=== PATIENT | male | born 1970 | race Caucasian/White ===

== ENCOUNTER 2020-03-26 12:24 | Outpatient (CLI) | payer BC, SELFPAY ==
--- NOTE | ~2020-03-26 | US_ITS ---
US soft tissue chest 03/26/2020 13:05 Indication: Localized swelling Procedure: High-resolution ultrasound of the left chest wall Comparison: No prior studies for comparison. Findings: Near the sternum in the left chest wall there is an oval circumscribed hypoechoic mass with internal cyst parallel striations measuring 3 x 2.4 x 0.8 cm. Minimal peripheral vascularity. There is parallel orientation. Impression: 1: Oval hypoechoic mass of the left chest wall in the area of palpable concern measuring up to 3 cm, most likely benign lipoma. Recommend follow-up ultrasound in 6 months unless subcortical examination changes earlier. Alternatively, percutaneous biopsy may be performed if decided by the patient and he r physician. Reviewed, dictated and finalized at location A. TATION SUPERVISOR Impression: 1: Oval hypoechoic mass of the left chest wall in the area of palpable concern measuring up to 3 cm, most likely benign lipoma. Recommend follow-up ultrasound in 6 months unless subcortical examination changes earlier. Alternatively, per cutaneous biopsy may be performed if decided by the patient and her physician.
== END 2020-03-26 12:25 | disposition home or self-care (01) ==
PROVIDERS: PCP Family Medicine; Visit Provider Family Medicine
DX: R22.2 Localized swelling, mass and lump, trunk (principal)
CPT/HCPCS: 76604

== ENCOUNTER → 2020-05-04 00:46 | Outpatient (CLI) | payer BC, SELFPAY ==
[2020-05-04 18:32] LABS: SARS-CoV-2 RNA PCR Negative
== END ==
PROVIDERS: PCP Family Medicine; Visit Provider Internal Medicine Gastroenterology
DX: Z01.812 Encounter for preprocedural laboratory examination (principal); Z20.822 Contact with and (suspected) exposure to COVID-19
CPT/HCPCS: C9803; U0003; U0005

== ENCOUNTER 2020-05-07 00:38 | Day surgery (SDC) | payer BC, SELFPAY ==
[2020-04-26 13:55] VITALS: BMI 23.7
[2020-05-07 06:21] VITALS: BMI 23.6
[2020-05-07] MEDS: LACTATED RINGERS 1,000 ML 150 ML IV CONT (06:46)
--- NOTE | 2020-05-07 06:53 | WPDANESEPPF ---
Anes - Initial Pre Proc Eval Procedure: Operation Date: 05/07/20 07:30 Proposed Procedures p Screening Colonoscopy - Keith Rodriguez MD Date/Time: 05/07/20 06:53 Surgeon: Keith Rodriguez MD Pre Op Diagnosis: neoplasm screening Patient Data Age: 49 Gender: M Height: 6 ft 4 in Weight: 87.8 kg Allergies Allergy/AdvReac Type Severity Reaction Status Date / Time No Known Allergies Allergy Unknown Verified 05/07/20 06:19 Home Medications Medication Instructions Recorded Confirmed Type atorvastatin 10 mg tablet 10 mg PO DAILY #90 tablet 04/13/20 05/07/20 Rx sodium,potassium,mag sulfates 17.5 See Rx Instructions PO .COMPLEX 04/15/20 04/26/20 Rx gram-3.13 gram-1.6 gram oral soln #354 ml Patient hx anesthesia problems: none Family hx anesthesia problems: none PMFSH Past Medical History Medical History Elbow injury Hyperlipidemia Other bursal cyst, other site Thumb fracture Social History Social History Smoking packs per day: 0.5 Smoking cigarettes per day: 10.0 Smoking status: Former smoker Tobacco type: cigarettes Alcohol intake: current Drinks per week: 14 Substance use: never Substance use type: does not use Living arrangements: with family Spiritual care concerns: No Anes - Eval Final PreProcedure Day of Procedure 05/07/20 06:53 Patient weight: normal Heart: regular rate and rhythm Lungs: clear to auscultation Airway: Mallampati scale class 1 Neurological: alert and oriented Last oral intake: >/= 8 hours ASA classification: II Emergent: no Anesthetic plan: proceed Anesthesia type and monitoring: general GIVS and standard monitoring Informed Consent: The patient's anesthetic plan and its attendant risks and benefits were discussed with the patient/family/POA. Questions were solicited and answers provided to the satisfaction of the patient/family/POA.
--- NOTE | 2020-05-07 07:02 | PM.HPGS ---
History of Present Illness History of Present Illness Consent: Risks, benefits, and alternatives have been discussed and questions answered. Patient agrees to proceed with procedure. Chief complaint: neoplasm screening Narrative: Ki Das is a 49 year old male Referred for colon cancer screen Review of Systems Review of Systems: All systems reviewed & are unremarkable except as noted in HPI and below PMFSH Past Medical History Medical History Elbow injury Hyperlipidemia Other bursal cyst, other site Thumb fracture Social History Social History Smoking packs per day: 0.5 Smoking cigarettes per day: 10.0 Smoking status: Former smoker Tobacco type: cigarettes Alcohol intake: current Drinks per week: 14 Substance use: never Substance use type: does not use Living arrangements: with family Spiritual care concerns: No Meds Home Medications and Allergies Home Medications Medication Instructions Recorded Confirmed Type atorvastatin 10 mg tablet 10 mg PO DAILY #90 tablet 04/13/20 05/07/20 Rx sodium,potassium,mag sulfates 17.5 See Rx Instructions PO .COMPLEX 04/15/20 04/26/20 Rx gram-3.13 gram-1.6 gram oral soln #354 ml Allergies Allergy/AdvReac Type Severity Reaction Status Date / Time No Known Allergies Allergy Unknown Verified 05/07/20 06:19 Exam Resp: Auscultation: clear to auscultation bilaterally Cardio: Rate: regular rate Rhythm: regular rhythm GI: GI Palp: Yes Soft to palpation and No Tenderness to palpation present (GI) Assessment and Plan Assessment and plan (1) Screening for colon cancer: Code(s): Z12.11 - Encounter for screening for malignant neoplasm of colon Status: Acute Assessment and Plan: Colonoscopy with possible biopsy or polypectomy or cautery or injection of substances.
[2020-05-07 07:43] VITALS: BP 107/65; PULSE 59; RESP 11; O2SAT 96
[2020-05-07 07:53] VITALS: BP 108/58; PULSE 61; RESP 17; O2SAT 96
[2020-05-07 08:03] VITALS: BP 127/84; PULSE 59; RESP 18; O2SAT 98
== END 2020-05-07 08:05 | disposition home or self-care (01) ==
PROVIDERS: PCP Family Medicine; Visit Provider Internal Medicine Gastroenterology
PROC: 0DJD8ZZ Inspection of Lower Intestinal Tract, Via Natural or Artificial Opening Endoscopic (ICD-10-PCS; CPT 45378; principal; 2020-05-07 07:30)
DX: Z12.11 Encounter for screening for malignant neoplasm of colon (principal); E78.5 Hyperlipidemia, unspecified; Z87.891 Personal history of nicotine dependence
CPT/HCPCS: 45378; J7120

== ENCOUNTER 2020-06-02 08:28 | Outpatient (CLI) | payer BC, SELFPAY | END 2020-06-02 08:29 | disposition home or self-care (01) | LOC: ANHCOVIDVC 08:29 | PROVIDERS: PCP Family Medicine | DX: Z23 Encounter for immunization (principal) | CPT/HCPCS: 0001A; 91300 ==

== ENCOUNTER 2020-06-23 08:30 | Outpatient (CLI) | payer BC, SELFPAY | END 2020-06-23 08:31 | LOC: ANHCOVIDVC 08:30 | PROVIDERS: PCP Family Medicine | DX: Z23 Encounter for immunization (principal) | CPT/HCPCS: 0002A; 91300 ==

== ENCOUNTER → 2020-07-26 10:52 | Outpatient (CLI) | payer BC, SELFPAY ==
--- NOTE | ~2020-07-26 | US_ITS ---
US soft tissue groin LT 07/26/2020 11:24 Indication: Left groin pain Procedure: High-resolution ultrasound of the left groin Comparison: . No prior studies for comparison. Findings: There is a normal appearing 1.3 cm lymph node in the left groin with retention of normal fa tty hilum. No evidence for inguinal hernia. No suspicious masses. No abnormal fluid collections. Impression: 1: Unremarkable ultrasound of the left groin without evidence for hernia. 2: Normal left inguinal lymph node measuring up to 1.3 cm, likely reactive. Reviewed, dictated and finalized at location B. Impression: 1: Unremarkable ultrasound of the left groin without evidence for hernia. 2: Normal left inguinal lymph node measuring up to 1.3 cm, likely reactive.
== END ==
PROVIDERS: Visit Provider Physician Assistant
DX: R10.32 Left lower quadrant pain (principal)
CPT/HCPCS: 76882

== ENCOUNTER 2020-10-08 11:08 | Outpatient (CLI) | payer BC, SELFPAY ==
--- NOTE | ~2020-10-08 | US_ITS ---
EXAMINATION: US soft tissue chest DATE: 10/08/2020 11:31 INDICATION: Month follow-up of a left chest wall lump TECHNIQUE: Multiple grayscale and Doppler ultrasound images of the region of the anterior left chest wall were obtained. COMPARISON: 03/26/2020 FINDINGS: No interval change in an ovoid subcutaneous mass measuring 2.9 x 2.1 x 0.8 cm the current study and 3 .0 x 2.4 x 0.8 cm on the prior study. The mass is only minimally hyperechoic and with similar echogen icity and linear internal septations as the surrounding subcutaneous fat which would be most consiste nt with a lipoma. IMPRESSION: 1. No significant interval change in a 2.9 x 2.1 x 0.8 cm ovoid subcutaneous mass with appearance mos t consistent with and statistically most likely to represent a lipoma. Reviewed, dictated and finalized at location A. IMPRESSION: 1. No significant interval change in a 2.9 x 2.1 x 0.8 cm ovoid subcutaneous ma ss with appearance most consistent with and statistically most likely to repres ent a lipoma.
== END 2020-10-08 11:09 | disposition home or self-care (01) ==
LOC: ANHIMG 11:11
PROVIDERS: PCP Family Medicine; Visit Provider Family Medicine
DX: M79.89 Other specified soft tissue disorders (principal)
CPT/HCPCS: 76604

== ENCOUNTER → 2021-01-20 11:57 | Outpatient (REF) | payer BC, SELFPAY | LOC: ANHLAB 11:57 | PROVIDERS: PCP Family Medicine; Visit Provider Nurse Practitioner | DX: D49.2 Neoplasm of unspecified behavior of bone, soft tissue, and skin (principal); L57.0 Actinic keratosis | CPT/HCPCS: 88305 ==

== ENCOUNTER 2022-03-08 10:40 | Outpatient (CLI) | payer OTHER, SELFPAY ==
--- NOTE | ~2022-03-08 | MR_ITS ---
MRI of the right shoulder Technique: Axial proton-density fat-sat images, coronal proton density fat-sat and T2 fat-sat images, and sagittal T1-weighted and T2 fat-sat images were acquired. Clinical History: Pain Findings: There is minimal degenerative change at the AC joint. Minimal subacromial spur present. Cor acoclavicular, coracoacromial, and coracohumeral ligaments are intact. Supraspinatus and infraspinatus tendons are intact, without partial or full-thickness tear. There is minimal tendinosis. Subscapularis tendon also intact with mild tendinosis. Tendon of the long head of the biceps is intact. Probable mild degenerative attenuation of the anterior labrum. Minimal inframedial humeral head spur noted. Inferior glenohumeral ligament is intact. No muscle atro phy or edema. No fluid distention of the subacromial/subdeltoid bursa. Impression: Mild rotator cuff tendinosis without partial or full-thickness tear. Mild degenerative attenuation of the anterior labrum. Reviewed, dictated and finalized at [facility]. RENTAL SALES ASSISTANT Impression: Mild rotator cuff tendinosis without partial or full-thickness tear. Mild degenerative attenuation of the anterior labrum.
== END 2022-03-08 10:41 | disposition home or self-care (01) ==
PROVIDERS: PCP Family Medicine; Visit Provider Physician Assistant Surgical
DX: M25.511 Pain in right shoulder (principal); M77.8 Other enthesopathies, not elsewhere classified
CPT/HCPCS: 73221

== ENCOUNTER 2022-04-25 08:02 | Outpatient (CLI) | payer OTHER, SELFPAY ==
--- NOTE | 2022-04-25 08:10 | ECG_ITS ---
Measurements Intervals [place] Rate: 55 P: 62 KS: 163 QRS: 48 QRSD: 118 T: 50 QT: 396 QTc: 381 Interpretive Statements SINUS BRADYCARDIA INCOMPLETE RIGHT BUNDLE BRANCH BLOCK BORDERLINE ECG NO PREVIOUS ECG AVAILABLE FOR COMPARISON Electronically Signed On 04-25-2022 8:18:49 GLOVE PARTS CUTTER by Steve Gordillo D.O.
== END 2022-04-25 08:03 | disposition home or self-care (01) ==
LOC: ANHSURGERY 08:06
PROVIDERS: PCP Family Medicine; Visit Provider Orthopaedic Surgery
DX: E78.5 Hyperlipidemia, unspecified (principal); I45.10 Unspecified right bundle-branch block
CPT/HCPCS: 93005

== ENCOUNTER 2022-05-02 00:43 | Day surgery (SDC) | payer OTHER, SELFPAY ==
[2022-04-21 13:40] VITALS: BMI 24.3
--- NOTE | 2022-04-21 13:41 | PC.NURSE ---
Report to the Outpatient Waiting Room, entrance under the green pavilion located off [facility], at time _12:30_ on date _05/02/22_. Planned Procedure Time: _1430__. Time changes happen often and if your time is changed the preop area will call you the afternoon before. - You and your visitor will be asked to self-screen and do not enter if you have any COVID symptoms. - Only one visitor is requested with a max of two and NO children visitors are allowed at this time. - The patient visitor may be requested to leave or wait in car when not with patient due to distancing restrictions. - A mask is optional within the hospital at this time. Patients may have clear liquids (water, carbonated beverages, clear teas, apple juice) until 3 hours prior to surgery with a maximum of 20 ounces. - No food from midnight until time of surgery (stop by 11:30) - Infants may have breast milk until 4 hours before surgery, formula 6 hours prior to surgery. - Children will be allowed to drink immediately following surgery. If applicable, please bring a bottle or sippy cup to assist with drinking. Juice, water, soda, and popsicles are readily available. For infants on formula, please bring formula the day of surgery. Pacifiers are allowed. Take the following medications with a SIP of water the morning of surgery: __Albuterol__ DO NOT STOP ANY OF YOUR OTHER PRESCRIPTION MEDICATIONS PRIOR TO SURGERY ?EXCEPT THE FOLLOWING Medications to discontinue per physician __supplements and vitamins 3 days prior____ Date to take last dose Please no make-up, nail sammarinese, hairspray, perfume, deodorant, or body powder the day of surgery. No jewelry (including any body piercings) or valuables the day of surgery, leave them at home. Please take a shower or bath the night before, or the morning of, surgery with an antibacterial soap. Wear comfortable, loose fitting clothing. Children are encouraged to wear pajamas. - Jewelry must be removed prior to entering the operating room. Rings and piercings that are not removed may be cut off. - The hospital will not accept responsibility for valuables. - Please leave all valuables, including medications, at home the day of surgery. If you are going home after surgery, a licensed lead driver must drive you home. - NO public transportation without another adult if you receive anesthesia. - We recommend that an adult stay with you for 24 hours following discharge. - We also recommend that you do not drive, make important decision, drink alcoholic beverages, or take any drugs that were not prescribed by your health care provider for at least 24 hours after your discharge time. For Pediatric surgeries, we recommend two adults accompany the child home. Follow any additional instructions given to you from your surgeon. If you or anyone in your household have experienced Covid symptoms in the past week, please notify your surgeon or the nurse liaison at the phone number below for possible testing. Telephone instructions given to _Patient_and asked if any additional questions and then verbalized understanding. Patient advised to call surgeon office or pre surgery nurse liaison [phone] if any additional questions.
[2022-05-02] VITALS (9 sets, daily range): BP systolic 112–154; BP diastolic 68–98; PULSE 56–72; RESP 12–16; TEMP 36.1–36.2; O2SAT 92–98
[2022-05-02] MEDS: LACTATED RINGERS 1,000 ML 30 ML IV CONT ×2 (12:51→15:53)
[2022-05-02] MEDS: KETOROLAC 15 MG/ML VIAL (*BKC) IV PUSH (12:53)
[2022-05-02] MEDS: ACETAMINOPHEN 500 MG TABLET 1000 MG PO (12:53)
--- NOTE | 2022-05-02 13:42 | WPDANESEPPF ---
Anes - Initial Pre Proc Eval Procedure: Operation Date: 05/02/22 14:30 Proposed Procedures p Right Shoulder Arthroscopy, Subacromial Decompression, Proceed as Indicated - Kyle Pollard MD Date/Time: 05/02/22 13:42 Surgeon: Kyle Pollard MD Pre Op Diagnosis: impingement syndrome right shoulder Patient Data Age: 51 Gender: M Height: 1.93 m Weight: 91.56 kg Last Vital Signs Temp 36.1 C L 05/02/22 12:33 Pulse 62 05/02/22 12:33 Resp 16 05/02/22 12:33 BP 140/85 05/02/22 12:33 Pulse Ox 98 05/02/22 12:33 O2 Del Method Room Air 05/02/22 12:33 Allergies Allergy/AdvReac Type Severity Reaction Status Date / Time No Known Allergies Allergy Unknown Verified 04/21/22 13:32 Home Medications Medication Instructions Recorded Confirmed Type albuterol sulfate 90 mcg/actuation 2 inh inhalation Q4H PRN shortness 01/20/22 04/21/22 Rx aerosol inhaler of breath or wheezing #8.5 grams atorvastatin 20 mg tablet 40 mg PO DAILY #180 tabs 04/04/22 04/21/22 Rx hydrocodone 5 mg-acetaminophen 325 1 - 2 tablet PO Q4-6H PRN pain #30 05/02/22 Rx mg tablet tabs Patient hx anesthesia problems: none Family hx anesthesia problems: none Results Review: All pre-operative results and documents have been reviewed as part of the pre-operative evaluation. [facility] Past Medical History Medical History Elbow injury Hyperlipidemia Other bursal cyst, other site Thumb fracture Surgical History Surgical History History of sinus surgery (~2011) Social History Social History Smoking packs per day: 0.5 Smoking cigarettes per day: 10.0 Smoking status: Never smoker Tobacco type: cigarettes Alcohol intake: current Drinks per week: 10 Substance use: never Substance use type: does not use Lack of Transportation: No Lack of Food: Never True Current Housing: I Have Housing Concerned About Future Housing: No Difficulty Paying Gas/Electric Bills: No Difficulty Paying for Meds: No Currently Unemployed: No Education: Bachelor's Degree Difficulty w/ Childcare or Family Care: No Living arrangements: with family Spiritual care concerns: No Anes - Eval Final PreProcedure Day of Procedure 05/02/22 13:42 Patient weight: normal Heart: regular rate and rhythm Lungs: clear to auscultation Airway: Mallampati scale class II Neurological: alert and oriented Last oral intake: >/= 8 hours ASA classification: II Emergent: no Anesthetic plan: proceed Anesthesia type and monitoring: general ETT and standard monitoring Results Review: All pre-operative results and documents have been reviewed as part of the pre-operative evaluation. Informed Consent: The patient's anesthetic plan and its attendant risks and benefits were discussed with the patient/family/POA. Questions were solicited and answers provided to the satisfaction of the patient/family/POA.
--- NOTE | 2022-05-02 13:58 | WPDHPUPDATE1 ---
History and Physical Update Update Date/Time: 05/02/22 13:58 History and Physical has been reviewed, including an updated exam of the patient. There are NO changes in the patient's condition. Risks, benefits, and alternatives have been discussed and questions answered. Patient agrees to proceed with procedure.
[2022-05-02] MEDS: ceFAZolin 2 GM/D5W 50 ML 2 GM/50 ML BAG IVPB (14:26)
--- NOTE | 2022-05-02 14:26 | WPDANESPNB ---
Anes - Peripheral Nerve Block Date/Time: 05/02/22 14:26 I have discussed with the patient/family/POA the placement of a peripheral nerve block for post-operative pain management, including associated risks, benefits, complications, and side effects. Alternative methods of post-operative analgesia were detailed. Questions were solicited and answers provided to the satisfaction of the patient/family/POA. Time-Out: A pre-procedural Time-Out was completed immediately before starting the procedure and confirmed: Patient Identification, Site, Procedure, Patient Position and the Availability of Requisite Equipment. Clinical Indications: Acute post-operative pain management requested by the operative surgeon. Nerve Block Insertion Note Anes-nerve block: interscalene right Patient position: other (sitting) Skin prep: chlorhexidine Needle: 22 gauge, stimulating, insulated echogenic needle. Needle length: 50 mm Technique: nerve stimulation lost at (mA) (0.3) and ultrasound Technique comment: mid 2mg [id number] Injectate: bupivacaine 0.5% with epi 5 mcg/ml (30ml) Observations: tolerated well Complications: none Procedure start time:: 1414 Procedure end time:: 1421
--- NOTE | 2022-05-02 14:41 | W.PM.PROC2 ---
Procedure Note - Detailed Date of Procedure 05/02/22 Pre-op Diagnosis Impingement syndrome right shoulder Post-op Diagnosis Other (1. SLAP tear with posterior and anterior labral extention. 2. Subacromial impingement 3. Low-grade bursal side rotator cuff tear.) Procedure Performed Right shoulder 1. Arthroscopic biceps tenodesis 2. Arthroscopic subacromial decompression 3. Arthroscopic SLAP tear debridement Surgeon Kyle Pollard MD Director Medicaid Nida Cadet PA-C Anesthesia General and Regional ( interscalene block) Description of Procedure Preoperative antibiotics were given. An interscalene block was administered in the preoperative area. The patient was bought brought to the operating room. A general anesthetic was administered. The patient was carefully positioned in the beach chair position. The head and neck were carefully positioned. The non operative extremity was also carefully positioned. The shoulder was prepped and draped in the usual sterile fashion. Examination was performed. Standard posterior and anterior arthroscopic portals were established. Inflow achieved with the arthroscopic pump using saline and epinephrine. The glenohumeral joint was carefully inspected. There was significant hyperemia in the joint. The rotator cuff appeared quite normal. There was an extensive SLAP tear extending all the way posterior to this 7 o'clock position as well as anterior labral degeneration. Mild chondrosis on the glenoid, which was primarily in the central lower portion and along the posterior and inferior border. The humerus was normal. Biceps was stable without significant hyperemia. However with the significant instability at the superior labrum it was elected proceed with a biceps tenodesis. This was performed at the articular margin with a loop and tack system. A loop and then a locking suture was passed. This was placed into the knotless suture anchor. The SwiveLock anchor was securely placed with good bone density. Attention was turned to the subacromial space. A complete bursectomy was performed. The rotator cuff was significantly hyperemic. At the central supraspinatus there was evidence of direct impingement at the undersurface of the acromion which was frayed. There was a proximally 15-20% tearing of this approximately 6 mm diameter area. The remaining and surrounding tendon was quite healthy after debridement. An acromioplasty was performed nicely decompressing the joint. The arthroscopic instruments were removed. The wounds were closed with 3-0 Monocryl subcuticular suture and steri strips. There were no complications. A sling was applied and the patient brought to the recovery room. Physician paraprofessional education assistant, Nida Cadet PA-C, required for surgery; including patient positioning, draping, arthroscopic camera operation, maintaining instrument position, suture retrieval, wound closure, and dressing and sling placement. Implants Arthrex Loop N Tack system with SwiveLock anchor. Estimated Blood Loss 10 Pathology None sent Complications No immediate complications Condition Stable Disposition PACU [facility] Billing Surgery - Charge Forward: Surgery Billing
[2022-05-02] MEDS: oxyCODONE HCL (*CRX) 5 MG TAB IR PO (16:49)
[2022-05-02] MEDS: fentaNYL CITRATE INJ (*CRX) 100 MCG/2 ML VIAL 25 MCG IV PUSH (17:37)
== END 2022-05-02 18:25 | disposition home or self-care (01) ==
PROVIDERS: PCP Family Medicine; Visit Provider Orthopaedic Surgery
PROC: (CPT 29805; principal; 2022-05-02 14:30)
DX: M75.41 Impingement syndrome of right shoulder (principal); S43.431A Superior glenoid labrum lesion of right shoulder, initial encounter; E78.5 Hyperlipidemia, unspecified; Z87.891 Personal history of nicotine dependence; G89.18 Other acute postprocedural pain
CPT/HCPCS: 29826; 29828; 64415; A4565; A9270; C1713; J0690; J1100; J1885; J2250; J2405; J2704; J2710; J3010; J7120

== ENCOUNTER 2022-06-09 07:55 | Outpatient (CLI) | payer OTHER, SELFPAY ==
[2022-06-09 13:48] LABS: Hematocrit 44.3 % (42.0-52.0); Mean Corpuscular HGB Conc 33.9 g/dl (32-36); Mean Corpuscular Hemoglobin 31.3 pg (26-34); Mean Corpuscular Volume 92.3 fl (80-100); Mean Platelet Volume 10.4 fl (7.4-10.4); Platelet Count Result 187 k/mm3 (150-375); Red Cell Distribution Width 12.2 % (11.5-14.5); White Blood Count 6.6 K/mm3 (4.5-10.0)
[2022-06-09 14:51] LABS: Prostate Specific Antigen 0.6 ng/mL (< OR = 4.0)
== END 2022-06-09 07:56 | disposition home or self-care (01) ==
LOC: ANHGOSHLAB 07:56
PROVIDERS: PCP Family Medicine; Visit Provider Family Medicine
DX: E78.5 Hyperlipidemia, unspecified (principal); Z79.899 Other long term (current) drug therapy; Z12.5 Encounter for screening for malignant neoplasm of prostate
CPT/HCPCS: 36415; 84153; 84443; 85027; G0103

== ENCOUNTER 2022-07-14 12:42 | Outpatient (CLI) | payer OTHER, SELFPAY ==
[2022-07-14 19:15] LABS: Alanine Aminotransferase 48 U/L (6-50); Albumin Level 4.5 g/dL (3.5-5.1); Alkaline Phosphatase 85 U/L (38-126); Anion Gap 5 mmol/L (8-16); Aspartate Amino Transferase 44 U/L (17-59); Bilirubin,Total 0.9 mg/dL (0.2-1.3); Blood Urea Nitrogen 16 mg/dL (9-20); Calcium 9.2 mg/dL (8.4-10.2); Carbon Dioxide 30 mmol/L (22-30); Chloride 106 mmol/L (98-107); Cholesterol 134 mg/dL (0-200); Estimated Glomerular Filt Rate > 60; Glucose 90 mg/dL (65-110); HDL Direct 43 mg/dL; Sodium 141 mmol/L (137-145); Triglycerides 106 mg/dL (<150)
[2022-07-14 19:25] LABS: LDL Cholesterol Direct 76 mg/dL
== END 2022-07-14 12:43 | disposition home or self-care (01) ==
LOC: ANHGOSHLAB 12:43
PROVIDERS: PCP Family Medicine; Visit Provider Family Medicine
DX: E78.5 Hyperlipidemia, unspecified (principal); Z79.899 Other long term (current) drug therapy
CPT/HCPCS: 36415; 80053; 80061

== ENCOUNTER 2022-07-14 14:15 | Outpatient (RCR) | payer OTHER, SELFPAY ==
--- NOTE | 2022-05-11 13:38 | PTOPEVAL1 ---
Assessment and note entered by Karen Varghese DPT Evaluation Information Assessment Status Evaluation Subjective Information Pt is s/p R shoulder arthroscopic biceps tenodesis , subacromial decompression, SLAP tear debridement on 05/02/22. Highest pain recently 2/10 and lowest 0/10. Currently wearing a sling most of the time. Has been modifying activities such as cooking and driving by using his other hands. Has not been exercising or doing yard work, he normally would be doing that. Pt is working from home currently. Returns to MD 05/17/22. Goal for therapy: get range of motion and strength back. Original injury was after a fall on ice last year. Reports MD has told him no lifting over a coffee cup, has been educated to do pendulums and active assistive flexion and external rotation and has been doing them. Reported Pain Level Pain Score 1: Self Report Assessment PT Clinical Summary The patient is presenting to skilled therapy s/p R arthroscopic biceps tenodesis, subacromial decompression, and SLAP tear debridement on . He presents with decreased range of motion and likely strength impairments and is wearing a sling part of the time, which are contributing to his difficulty using his R UE for activities like cooking and driving. He will benefit from therapy to address his impairments and safely return to full function. Plan of Care Interventions Hot Pack/Cold Pack,Manual Therapy,Neuro Re- education,Patient/Caregiver Education,Therapeutic Activities,Therapeutic Exercise,Self-Care/Home Management PT Services Indicated Yes Treatment Frequency and 1-2 times a week for 4 weeks Duration These treatments will address the objective and functional deficits as defined above. The patient will be advanced safely and appropriately in order for the patient to progress towards his/her prior level of function. Additional exercises will be introduced and as well as a comprehensive home exercise program upon discharge, if needed, ?to ensure carryover of functional gains achieved in the clinic. This treatment plan has been reviewed and agreement upon by the patient.
--- NOTE | 2022-06-09 13:37 | PTOPPROG ---
Assessment and note entered by Karen Varghese DPT Evaluation Information Assessment Status Progress Subjective Information Sees MD next Sunday. Feels improvements with therapy, range of motion and ability to move his arm is better. Reports less pain as well. Highest pain 2-3/10 and lowest 0/10. Pt has not yet returned to yard work and other heavy activities at home. Lifting restriction is 5-10 pounds per MD . Assessment PT Clinical Summary The patient has made excellent progress in therapy . He reports decreased pain and improved ability to move his arm at home. He demonstrates greatly improved range of motion to nearly equal to his left UE. He does demonstrate decreased strength in his right UE and has not yet returned to all activities at home such as yard work. He will benefit from therapy to address these impairments and safely return to his prior level of function. Plan of Care Interventions Electrical Stimulation,Hot Pack/Cold Pack,Manual Therapy,Neuro Re-education,Patient/Caregiver Education,Therapeutic Activities,Therapeutic Exercise,Self-Care/Home Management PT Services Indicated Yes Treatment Frequency and 1-2 times a week for 4 weeks Duration These treatments will address the objective and functional deficits as defined above. The patient will be advanced safely and appropriately in order for the patient to progress towards his/her prior level of function. Additional exercises will be introduced and as well as a comprehensive home exercise program upon discharge, if needed, ?to ensure carryover of functional gains achieved in the clinic. This treatment plan has been reviewed and agreement upon by the patient.
--- NOTE | 2022-07-14 14:22 | PTOPDC ---
Assessment and note entered by Karen Varghese DPT Evaluation Information Assessment Status Discharge Subjective Information Pt reports his shoulder has been feeling pretty good, was able to play golf recently. Has been able to do things at home like reaching overhead and yard work. Highest pain in last week 0/10. Reported Pain Level Pain Score 0: Self Report Assessment PT Clinical Summary The patient has made excellent progress in therapy . He reports no pain in the last week. He has been able to return to all typical activities and reports no functional limitations. He demonstrates functional range of motion in all planes and greatly improved shoulder strength. Due to his progress, discharge this visit is recommended. He has been educated to continue his HEP and follow up with MD and/or PT as needed. Plan of Care PT Services Indicated No
== END 2022-07-14 15:53 | disposition home or self-care (01) ==
LOC: ANHGOSHPT 14:15
PROVIDERS: PCP Family Medicine; Visit Provider Orthopaedic Surgery
DX: Z48.89 Encounter for other specified surgical aftercare (principal)
CPT/HCPCS: 97110; 97112; 97140; 97161

== ENCOUNTER 2023-01-15 08:00 | Outpatient (CLI) | payer OTHER, SELFPAY ==
[2023-01-15 12:20] LABS: Hematocrit 45.7 % (42.0-52.0); Hemoglobin 14.7 g/dL (14.0-18.0); Mean Corpuscular HGB Conc 32.2 g/dl (32-36); Mean Corpuscular Hemoglobin 30.7 pg (26-34); Mean Corpuscular Volume 95.4 fl (80-100); Mean Platelet Volume 10.1 fl (7.4-10.4); Platelet Count Result 209 k/mm3 (150-375); Red Blood Count 4.79 M/mm3 (4.6-6.20); Red Cell Distribution Width 12.5 % (11.5-14.5); White Blood Count 5.6 K/mm3 (4.5-10.0)
[2023-01-15 12:35] LABS: Alanine Aminotransferase 47 U/L (6-50); Alkaline Phosphatase 73 U/L (38-126); Anion Gap 9 mmol/L (8-16); Aspartate Amino Transferase 48 U/L (17-59); Bilirubin,Total 0.5 mg/dL (0.2-1.3); Blood Urea Nitrogen 13 mg/dL (9-20); Calcium 9.1 mg/dL (8.4-10.2); Carbon Dioxide 25 mmol/L (22-30); Chloride 104 mmol/L (98-107); Cholesterol 146 mg/dL (0-200); Estimated Glomerular Filt Rate > 60; Glucose 104 mg/dL (65-110); HDL Direct 35 mg/dL; Potassium 3.9 mmol/L (3.4-5.0); Sodium 138 mmol/L (137-145); Triglycerides 174 mg/dL (<150)
[2023-01-15 12:46] LABS: LDL Cholesterol Direct 79 mg/dL
[2023-01-15 13:04] LABS: Prostate Specific Antigen 0.7 ng/mL (< OR = 4.0)
== END 2023-01-15 08:01 | disposition home or self-care (01) ==
LOC: ANHGOSHLAB 08:01
PROVIDERS: PCP Family Medicine; Visit Provider Family Medicine
DX: E78.5 Hyperlipidemia, unspecified (principal); Z79.899 Other long term (current) drug therapy; Z12.5 Encounter for screening for malignant neoplasm of prostate
CPT/HCPCS: 36415; 80053; 80061; 84153; 84443; 85027; G0103

== ENCOUNTER 2023-07-12 13:16 | Outpatient (CLI) | payer OTHER, SELFPAY ==
[2023-07-12 18:45] LABS: Alanine Aminotransferase 64 U/L (6-50); Albumin Level 4.3 g/dL (3.5-5.1); Alkaline Phosphatase 70 U/L (38-126); Anion Gap 6 mmol/L (4-12); Aspartate Amino Transferase 49 U/L (17-59); Blood Urea Nitrogen 12 mg/dL (9-20); Calcium 9.3 mg/dL (8.4-10.2); Carbon Dioxide 26 mmol/L (22-30); Chloride 106 mmol/L (98-107); Cholesterol 153 mg/dL (0-200); Estimated Glomerular Filt Rate > 60; Glucose 85 mg/dL (65-110); HDL Direct 35 mg/dL; Potassium 3.7 mmol/L (3.4-5.0); Sodium 138 mmol/L (137-145); Triglycerides 185 mg/dL (<150)
[2023-07-12 18:56] LABS: LDL Cholesterol Direct 89 mg/dL
== END 2023-07-12 13:17 | disposition home or self-care (01) ==
LOC: ANHGOSHLAB 13:17
PROVIDERS: PCP Family Medicine; Visit Provider Family Medicine
DX: E78.5 Hyperlipidemia, unspecified (principal); Z79.899 Other long term (current) drug therapy
CPT/HCPCS: 36415; 80053; 80061

== ENCOUNTER 2023-10-01 08:09 | Outpatient (CLI) | payer OTHER, SELFPAY ==
--- NOTE | 2023-10-23 19:23 | WPDHOMESLEEP ---
Sleep Study - Home Unattended Date of Study: 10/01/23 Ordering Provider: Muriel Gandhi DO Interpreting Provider: Marleny Elkins MD Home Sleep Study Type: Watch PAT Height: 1.93 m Weight: 90.718 kg Body Mass Index: 24.3 Neck Circumference (inches): 16 [place]: 8 Reason for Sleep Study Loud snoring, gasping at night Sleep History Ki Das is a 52-year-old man with a history of loud snoring, witnessed apnea and gasping at night. He has had sinus surgery which did not help his sleep apnea. Normal bedtime is 9:00 p.m. taking 30 minutes to fall asleep spending 8-1/2 hours in bed, waking at least 3 times during the night. His normal wake up time is 5:00 a.m., wakes without an alarm clock. He does not take any sleep medication. He was up once to go to the bathroom on the night of this home sleep test. He does not generally nap during the day. He does not have particular problems breathing on his back. He does not wake with a morning headache. He does awaken with a dry mouth, sometimes awakens with a sore throat. He does not have nocturnal heartburn. He has no history of hypertension, heart failure or atrial fibrillation. He does not have problems falling asleep but he does have difficulty staying asleep. He also has difficulty returning to sleep when he awakens at night. He wakes up feeling tired and fatigue. He feels sleepy during the day. He does not have drowsy driving. He clenches and grinds his teeth at night. He does not have problems with uncomfortable feelings in his legs before sleep and he does not kick his legs or jerk during the night. Lifestyle: Tobacco: none Caffeine: 3-4 daily Alcohol: 3-4 per week He does not work rotating shifts. Insomnia Severity Index = 11; [place] = 8; [place] = 5; loud snoring, observed apneas, age greater than 50, neck size greater than 16 in/40 cm, male gender. [facility] Past Medical History Medical History Elbow injury Hyperlipidemia Other bursal cyst, other site Thumb fracture Surgical History Surgical History History of arthroscopy of right shoulder (~05/02/22) Arth.Subacromial Decompression, Biceps Tenodesis, SLAP Debridement History of sinus surgery (~2011) Social History Social History Smoking packs per day: 0.5 Smoking cigarettes per day: 10.0 Years smoked: 10 Smoking pack-years: 5.00 Smoking status: Former smoker Tobacco type: cigarettes Alcohol intake: current Drinks per week: 10 Substance use: never Substance use type: does not use Lack of Transportation: No Lack of Food: Never True Current Housing: I Have Housing Concerned About Future Housing: No Difficulty Paying Gas/Electric Bills: No Difficulty Paying for Meds: No Currently Unemployed: No Education: Bachelor's Degree Difficulty w/ Childcare or Family Care: No Living arrangements: with family Spiritual care concerns: No Medications Home Medications Medication Instructions Recorded Confirmed Type atorvastatin 20 mg tablet 40 mg PO DAILY #180 tabs 04/19/23 07/23/23 Rx Sleep Procedure The sleep study was completed using SiriT a technically adequate device with seven channels: peripheral arterial tone, actigraphy, body position, snore, respiratory movement, pulse oximetry, sleep staging, and heart rate. Prior to using the device, the patient received verbal and written instructions for its application and was provided with the help desk phone number for additional telephonic instruction with 24-hour availability of qualified personnel to answer questions. Sleep Architecture The total recording time is 8 hrs, 18 min. The total sleep time is 6 hrs, 44 min. Sleep latency is 20 minutes. REM latency is 81 minutes. The patient had 12 episodes of waking. S
[2023-10-23 19:27] VITALS: BMI 24.3
== END 2023-10-02 11:37 | disposition home or self-care (01) ==
LOC: ANHCSM 08:09
PROVIDERS: PCP Family Medicine; Visit Provider Family Medicine
DX: G47.33 Obstructive sleep apnea (adult) (pediatric) (principal); R06.83 Snoring; R29.818 Other symptoms and signs involving the nervous system; E78.5 Hyperlipidemia, unspecified; Z87.891 Personal history of nicotine dependence
CPT/HCPCS: 95800

== ENCOUNTER 2024-01-14 08:46 | Outpatient (CLI) | payer OTHER, SELFPAY ==
[2024-01-14 11:20] LABS: Hematocrit 43.4 % (42.0-52.0); Hemoglobin 14.5 g/dL (14.0-18.0); Mean Corpuscular HGB Conc 33.4 g/dl (32-36); Mean Corpuscular Volume 92.9 fl (80-100); Mean Platelet Volume 10.3 fl (7.4-10.4); Platelet Count Result 195 k/mm3 (150-375); Red Blood Count 4.67 M/mm3 (4.6-6.20); White Blood Count 6.3 K/mm3 (4.5-10.0)
[2024-01-14 11:35] LABS: Alanine Aminotransferase 45 U/L (6-50); Albumin Level 4.2 g/dL (3.5-5.1); Alkaline Phosphatase 66 U/L (38-126); Anion Gap 7 mmol/L (4-12); Aspartate Amino Transferase 38 U/L (17-59); Bilirubin,Total 0.6 mg/dL (0.2-1.3); Blood Urea Nitrogen 21 mg/dL (9-20); Calcium 8.8 mg/dL (8.4-10.2); Carbon Dioxide 25 mmol/L (22-30); Chloride 105 mmol/L (98-107); Cholesterol 162 mg/dL (0-200); Estimated Glomerular Filt Rate > 60; Glucose 106 mg/dL (65-110); HDL Direct 31 mg/dL; Potassium 4.2 mmol/L (3.4-5.0); Sodium 137 mmol/L (137-145); Triglycerides 280 mg/dL (<150)
[2024-01-14 11:46] LABS: LDL Cholesterol Direct 75 mg/dL
== END 2024-01-14 08:47 | disposition home or self-care (01) ==
LOC: ANHGOSHLAB 08:48
PROVIDERS: PCP Family Medicine; Visit Provider Family Medicine
DX: E78.5 Hyperlipidemia, unspecified (principal); R03.0 Elevated blood-pressure reading, without diagnosis of hypertension; Z79.899 Other long term (current) drug therapy; Z12.5 Encounter for screening for malignant neoplasm of prostate
CPT/HCPCS: 36415; 80053; 80061; 84153; 84443; 85027; G0103

== ENCOUNTER 2024-03-21 12:37 | Outpatient (CLI) | payer OTHER, SELFPAY ==
[2024-03-21 14:03] LABS: Influenza A QL RT-PCR Negative (Negative); Influenza B QL RT-PCR Negative (Negative); RSV RNA, RT-PCR Negative (Negative); SARS-CoV-2 RNA PCR Negative (Negative)
== END 2024-03-21 12:38 | disposition home or self-care (01) ==
LOC: ANHGOSHLAB 12:39
PROVIDERS: PCP Family Medicine; Visit Provider Family Medicine
DX: Z11.52 Encounter for screening for COVID-19 (principal)
CPT/HCPCS: 87637

== ENCOUNTER 2024-08-21 09:42 | Outpatient (CLI) | payer OTHER, SELFPAY ==
[2024-08-21 12:50] LABS: Hematocrit 43.3 % (42.0-52.0); Hemoglobin 14.5 g/dL (14.0-18.0); Mean Corpuscular HGB Conc 33.5 g/dl (32-36); Mean Corpuscular Hemoglobin 30.9 pg (26-34); Mean Corpuscular Volume 92.1 fl (80-100); Platelet Count Result 191 k/mm3 (150-375); Red Blood Count 4.70 M/mm3 (4.6-6.20); White Blood Count 6.3 K/mm3 (4.5-10.0)
[2024-08-21 12:55] LABS: Alanine Aminotransferase 57 U/L (6-50); Albumin Level 4.3 g/dL (3.5-5.1); Alkaline Phosphatase 60 U/L (38-126); Anion Gap 8 mmol/L (4-12); Aspartate Amino Transferase 63 U/L (17-59); Bilirubin,Total 1.1 mg/dL (0.2-1.3); Blood Urea Nitrogen 12 mg/dL (9-20); Calcium 9.3 mg/dL (8.4-10.2); Carbon Dioxide 26 mmol/L (22-30); Chloride 104 mmol/L (98-107); Cholesterol 127 mg/dL (0-200); Estimated Glomerular Filt Rate > 60; Glucose 103 mg/dL (65-110); HDL Direct 32 mg/dL; Potassium 3.8 mmol/L (3.4-5.0); Sodium 138 mmol/L (137-145); Total Protein 6.7 g/dL (6.3-8.2); Triglycerides 159 mg/dL (<150)
== END 2024-08-21 09:43 | disposition home or self-care (01) ==
LOC: ANHGOSHLAB 09:44
PROVIDERS: PCP Family Medicine; Visit Provider Family Medicine
DX: E78.5 Hyperlipidemia, unspecified (principal); R03.0 Elevated blood-pressure reading, without diagnosis of hypertension; Z79.899 Other long term (current) drug therapy
CPT/HCPCS: 36415; 80053; 80061; 85027